=== PATIENT | female | born 1950 | race Caucasian/White ===

== ENCOUNTER 2022-06-14 05:25 | Day surgery (SDC) | payer OTHER, MEDICAID ==
[~2022-06-14] VITALS: Ht 149.9 cm; Wt 78.5 kg
[2022-06-14] MEDS ORDERED: CEFAZOLIN SOD 1 GM in D5W 50 ML IV ONE (07:00)
[2022-06-14] MEDS ORDERED: KETOROLAC TROMETHAMINE 30 MG VIAL ONE (10:04)
[2022-06-14] MEDS ORDERED: LR 1,000 ML IV.SOLN IV ONE (10:04)
[2022-06-14] MEDS ORDERED: BUPIVACAINE /PF 0.25% 30 ML VIAL INJ ONE (10:04)
[2022-06-14] MEDS ORDERED: SEVOFLURANE 15 MIN GAS INH ONE (10:04)
[2022-06-14] MEDS ORDERED: PROPOFOL 200MG/ 20ML VIAL (DIPRIVAN) IV ONE (10:04)
[2022-06-14] MEDS ORDERED: ROCURONIUM BROMIDE 10 MG/ML (ZEMURON) ONE (10:04)
[2022-06-14] MEDS ORDERED: NS IRRIG SOLN 1000 ML IR ONE (10:04)
[2022-06-14] MEDS ORDERED: HYDROcodone/ACETAMIN 5-325 MG TAB (NORCO/ VICODIN) PO PRN ×2 (11:45)
[2022-06-14] MEDS ORDERED: D5/0.45 NS 1,000 ML IV SCH (11:45)
[2022-06-14] MEDS ORDERED: HYDROmorphone 1 MG/ML INJ. CARTRIDGE IVP PRN ×2 (12:00)
[2022-06-14] MEDS ORDERED: LR 1,000 ML IV SCH (12:00)
[2022-06-14] MEDS ORDERED: ONDANSETRON HCL 4 MG/2 ML VIAL IVP PRN (12:00)
[2022-06-14] MEDS ORDERED: KETOROLAC TROMETHAMINE 30 MG VIAL IVP PRN (12:00)
[2022-06-14 12:36] VITALS: BP_SYST 128
== END 2022-06-14 13:45 | disposition home or self-care (01) ==
LOC: SMU 05:25 → SDS 05:25
PROVIDERS: ATTEND Colon & Rectal Surgery
DX: D24.1 Benign neoplasm of right breast (principal); I10 Essential (primary) hypertension; E03.9 Hypothyroidism, unspecified; M85.80 Other specified disorders of bone density and structure, unspecified site; E11.42 Type 2 diabetes mellitus with diabetic polyneuropathy; Z20.822 Contact with and (suspected) exposure to COVID-19; Z79.899 Other long term (current) drug therapy
CPT/HCPCS: 36415 ×2; 19120; 19281; 82962; 93005; 71046; 88307; 87426; U0003; J3490; J0690; J1885; J2704; J7060; J7120; C1819; 88305